=== PATIENT | female | born 1975 ===

== ENCOUNTER 2016-09-20 12:51 | Emergency (ER) | payer OTHER ==
--- NOTE | 2016-09-20 15:33 | UC ---
Skin Complaint HPI - HPI Summary HPI Summary: Pt is visiting from out of town for [facility] and staying in a dorm. Wore long pants and a t-shirt to bed last night. Went on a 5k run this morning and wore her normal spandex running pants. Noticed after the run that she has dozens of separate raised red bumps on fronts and backs of thighs ( backs >> fronts) as well as L upper inner arm. Also noticed a few scattered spots on torso, but mainly legs and L arm. Denies fever or other systemic illness symptoms, no pain or itching, no known recent skin exposures to irritants or allergens. No hx of allergy to skin products. - History of Current Complaint Chief Complaint: UCRash Time Seen by Provider: 09/20/16 15:01 Stated Complaint: RASH Hx Obtained From: Patient Hx Last Menstrual Period: 08/1816 ?: No Onset/Duration: Lasting Hours Timing: Constant Onset Severity: Mild Current Severity: Mild Location: Generalized Character: Redness, Raised Aggravating: Nothing Alleviating: Nothing Associated Signs & Symptoms: Positive: Rash - Allergy/Home Medications Allergies/Adverse Reactions: Allergies Allergy/AdvReac Type Severity Reaction Status Date / Time Penicillins [PCN] Allergy Hives Verified 09/20/16 13:01 Sulfa Antibiotics Allergy Hives Verified 09/20/16 13:01 Home Medications: Home Medications Cetirizine* [ZyrTEC 10 MG TAB*] 10 mg PO DAILY PRN 09/20/16 [History Confirmed 09/20/16] Multivitamins/Minerals TAB* [Thera M Plus TAB*] 1 tab PO DAILY 09/20/16 [ History Confirmed 09/20/16] Review of Systems Constitutional: Negative Skin: Rash Eyes: Negative ENT: Negative Respiratory: Negative Cardiovascular: Negative Gastrointestinal: Negative Genitourinary: Negative Motor: Negative Neurovascular: Negative Musculoskeletal: Negative Neurological: Negative Psychological: Negative All Other Systems Reviewed And Are Negative: Yes PMH/Surg Hx/FS Hx/Imm Hx Previously Healthy: Yes - Surgical History Surgical History: None - Family History Known Family History: Positive: Hypertension - Social History Alcohol Use: Weekly Substance Use Type: None Smoking Status (MU): Never Smoked Tobacco Physical Exam Triage Information Reviewed: Yes Appearance: Well-Appearing, No Pain Distress, Well-Nourished Vital Signs: Initial Vital Signs Temp 99.5 F 09/20/16 12:58 Pulse 70 09/20/16 12:58 Resp 16 09/20/16 12:58 BP 155/96 09/20/16 12:58 Pulse Ox 100 09/20/16 12:58 Vital Signs Reviewed: Yes Eye Exam: Normal Eyes: Positive: Conjunctiva Clear ENT Exam: Normal ENT: Positive: Normal ENT inspection, Hearing grossly normal, Pharynx normal, TMs normal Dental Exam: Normal Neck exam: Normal Neck: Positive: Supple, Nontender, No Lymphadenopathy Respiratory Exam: Normal Respiratory: Positive: Chest non-tender, Lungs clear, Normal breath sounds, No respiratory distress, No accessory muscle use Cardiovascular Exam: Normal Cardiovascular: Positive: RRR, No Murmur Musculoskeletal Exam: Normal Neurological Exam: Normal Neurological: Positive: Alert Psychological Exam: Normal Skin Exam: Other - 2-5mm raised red bumps symmetric on both legs, dense with some confluence on backs of thighs and also on fronts of thighs, few on L upper inner arm. Most have a faint pale halo. No drainage, erythema, or streaking. Course/Dx - Diagnoses Provider Diagnoses: dermatitis on legs and L arm Discharge - Discharge Plan Condition: Stable Disposition: HOME Patient Education Materials: Dermatitis (ED) Referrals: No Primary Care Phys,NOPCP [Primary Care Provider] - Additional Instructions: As we discussed, your rash does not show any strong indication of being a treatable infection (such as a bacteria or fungus) or infestation (such as scabies). The symmetric and non-itchy nature of it practically rule out the possibility of shingles or bed bugs, and you have no systemic illness to suggest a viral cause. Simply watch the area for any major worsening or other problems. If you have marked itching you can call here and I will prescribe a course of prednisone, or you can see your primary care provider for a recheck. Please get seen again right away if you see spreading redness, red streaks up your leg, or if you develop fever or pain.
== END 2016-09-20 15:32 | disposition home or self-care (01) ==
LOC: UCEAST 12:51
DX: L30.9 Dermatitis, unspecified (principal)
CPT/HCPCS: 99201; G0463